=== PATIENT | male | born 1980 | race African-American/Black ===

== ENCOUNTER 2017-07-05 15:58 | Emergency (ER) | payer MEDICAID ==
[~2017-07-05] VITALS: Ht 182.9 cm; Wt 111.1 kg
[2017-07-05 16:21] VITALS: BP 141/92
[2017-07-05] MEDS ORDERED: HYDROcodone/Acetamin 10/325 tab ORAL ONE (17:15)
[2017-07-05 18:56] VITALS: BP 145/90
[2017-07-05] MEDS ORDERED: Bacitracin Oint UD TOPIC ONE (20:00)
[2017-07-05] MEDS ORDERED: CEPHALEXIN500 MG ORAL (20:07)
[2017-07-05] MEDS ORDERED: BACTRIM DS TAB1 EAC1 ORAL (20:07)
--- NOTE | 2017-07-05 20:07 | Emergency Room Report ---
History of Present Illness General Chief Complaint: Foreign Body Source: Patient Present Illness HPI 37-year-old male presents to the emergency department complaining of pain, swelling and inability to remove the ring from his left ring finger. Patient reports that after grabbing something he believes he bent the bottom of his ring which subsequently came unable to remove. Patient states that his symptoms of been going on for 2-3 days and the swelling is absent subsided. Patient states currently he has 1 out of 10 in severity however upon attempts to remove the ring he will have up to 8 out of 10 in severity pain. Patient reports some losing about the base of the left ring finger. Patient denies fevers, chill, numbness in the stool portion of the affected finger. Patient denies significant skin color changes of the affected extremity.He reports he believes that he is up-to-date with tetanus vaccination, but is not completely sure. Denies numbness tingling or loss of sensation or gross motor movements of the extremities, incontinence of bowel or bladder. Denies CP, Palpitations, LOC , AMS, dizziness, Changes in Vision, Sensation, paresthesias, or a sudden severe headache. Allergies: Coded Allergies: No Known Allergies (Unverified , 07/05/17) Nursing Documentation-[facility] Hx Asthma: Yes Review of Systems All Other Systems: negative except mentioned in HPI Physical Exam Vital Signs Date Time Temp Pulse Resp B/P (MAP) Pulse Ox O2 Delivery O2 Flow Rate FiO2 07/05/17 16:07 97.8 86 20 141/92 97 Room Air 97.9 Medical Decision Making Diagnostic Impression: Primary Impression: External constriction of left ring finger, initial encounter Additional Impression: Open wound of ring finger ER Course 37-year-old male presents to the emergency department complaining of pain, swelling and inability to remove the ring from his left ring finger. Patient reports that after grabbing something he believes he bent the bottom of his ring which subsequently came unable to remove. Patient states that his symptoms of been going on for 2-3 days and the swelling is absent subsided. Patient states currently he has 1 out of 10 in severity however upon attempts to remove the ring he will have up to 8 out of 10 in severity pain. Patient reports some losing about the base of the left ring finger. Patient denies fevers, chill, numbness in the stool portion of the affected finger. Patient denies significant skin color changes of the affected extremity.He reports he believes that he is up-to-date with tetanus vaccination, but is not completely sure. Denies numbness tingling or loss of sensation or gross motor movements of the extremities, incontinence of bowel or bladder. Denies CP, Palpitations, LOC , AMS, dizziness, Changes in Vision, Sensation, paresthesias, or a sudden severe headache. Ddx considered but are not limited to Fracture, dislocation, contusion, Sprain/ Strain/Spasm, amputation, strangulation, cellulitis, constriction just to name a few. Vital signs: are WNL, pt. is afebrile H&PE are most consistent with strenuous and due to ring around finger -- suspect underlying laceration due to appearance of skin.- Good cap refill, mild discoloration about the area where the ring is. Moderate distal finger swelling noted. ORDERS: ED INTERVENTIONS: -Tdap -PO pain medication -Digital finger block using 1% lidocaine - Ring removal procedure by administrative technician -- Discussed with this patient due to the extent of the skin damage with the patient the finger that he may require skin grafting on that he needs to follow- up with hand specialist. Discussed the patient he'll be discharged with oral antibiotics. And to keep wound clean and dry. DISCHARGE: At this time pt. is stable for d/c to home. Will provide printed patient care instructions, and any necessary prescriptions. Care plan and follow up instructions have been discussed with the patient prior to discharge. Last Vital Signs Date Time Temp Pulse Resp B/P (MAP) Pulse Ox O2 Delivery O2 Flow Rate FiO2 07/05/17 18:56 82 18 145/90 98 Room Air 07/05/17 17:38 97.9 Disposition: HOME, SELF-CARE Condition: Stable Scripts Hydrocodone Bit/Acetaminophen 5-325* (NORCO 5-325*) 1 Each Tablet 1 TAB ORAL Q6H PRN for For Pain, #6 TAB 0 Refills Prov: Maria Luisa Siddiqui P.A. 07/05/17 Ibuprofen* (MOTRIN*) 600 Mg Tablet 600 MG ORAL THREE TIMES A DAY, #20 TAB 0 Refills Prov: Maria Luisa Siddiqui P.A. 07/05/17 Trimethoprim/Sulfamethoxazole 160/800* (BACTRIM DS TABLET*) 1 Each Tablet 1 TAB ORAL TWICE A DAY for 7 Days, #14 TAB Prov: Maria Luisa Siddiqui 07/05/17 Cephalexin* (KEFLEX*) 500 Mg Capsule 500 MG ORAL EVERY 12 HOURS for 7 Days, #14 CAP 0 Refills Prov: Maria Luisa Siddiqui 07/05/17 Referrals: [facility],REFERRING (PCP) Patient Instructions: Delayed Wound Closure, Wound Care, Wound Check Additional Instructions: Take medications as directed. Follow up with a Primary Care Provider or Hand Specialist in 3-5 days, even if your symptoms have resolved. --Please review list of primary care clinics, if you do not already have a primary care provider Return sooner to ED if new symptoms occur, or current symptoms become worse. Do not drink alcohol, drive, or operate heavy machinery while taking [place] as this may cause drowsiness. - Please note that this Emergency Department Report was dictated using [employer] operator technology software, occasionally this can lead to erroneous entry secondary to interpretation by the dictation equipment. Maria Luisa Siddiqui July 05, 2017 20:06
[2017-07-05] MEDS ORDERED: IBUPROFEN600 MG ORAL (20:11)
[2017-07-05] MEDS ORDERED: NORCO 5-325 TA1 EACH ORAL (20:11)
[2017-07-05 20:15] VITALS: BP 142/89
[2017-07-05] MEDS ORDERED: Tetanus/Diptheria/Pertussis Vaccine 0.5ml Syr IM ONE (20:30)
[2017-07-05 20:32] VITALS: BP 142/89
== END 2017-07-05 20:32 | disposition home or self-care (01) ==
LOC: EMR 17:42
DX: M79.89 Other specified soft tissue disorders (principal); S61.235A Puncture wound without foreign body of left ring finger without damage to nail, initial encounter; W49.04XA Ring or other jewelry causing external constriction, initial encounter; Y92.9 Unspecified place or not applicable; Z23 Encounter for immunization; J45.909 Unspecified asthma, uncomplicated
CPT/HCPCS: 90471; 90715; 99284